=== PATIENT | male | born 1945 | race Caucasian/White ===

== ENCOUNTER 2021-06-16 10:49 | Emergency (ER) | payer OTHER, SELFPAY ==
[2021-06-16] VITALS (18 sets, daily range): BP systolic 75–113; BP diastolic 37–64; PULSE 69–86; RESP 14–18; TEMP 36.7–36.8; O2SAT 96–100; BMI 27.6
--- NOTE | 2021-06-16 11:12 | XR_ITS ---
PROCEDURE INFORMATION: Exam: XR Chest Exam date and time: 06/16/2021 11:12 AM Age: 75 years old Clinical indication: Other: Weakness; Additional info: Gen weakness TECHNIQUE: Imaging protocol: XR of the chest. Views: 1 view. COMPARISON: ABDPELW/O CT ABD PELVIS W/O CONTRAST 06/01/2017 9:41 PM FINDINGS: Lungs: Chronic volume loss in the right lung with areas of scarring in the upper right lung. No definite superimposed focal airspace disease. Pleural spaces: Unremarkable. No pleural effusion. No pneumothorax. Heart/Mediastinum: Unremarkable. No cardiomegaly. Bones/joints: Unremarkable. IMPRESSION: Chronic volume loss and scarring in the right lung without definite evidence of superimposed acute cardiopulmonary abnormality.
[2021-06-16 11:23] LABS: Eosinophils # 0.1 K/mm3 (0.0-0.4); Lymphocytes # 1.5 K/mm3 (0.7-4.5)
[2021-06-16 11:25] LABS: Basophils % 0.7 % (0.1-2.0); Eosinophils % 1.4 % (0.1-12.0); Lymphocytes % 28.4 % (10-50); Mean Corpuscular HGB Conc 30.1 g/dL (31.8-35.4); Mean Corpuscular Hemoglobin 30.9 pg (27.0-31.2); Mean Corpuscular Volume 102.8 fl (80-94); Mean Platelet Volume 9.8 fl (7.4-10.4); Monocytes # 0.5 K/mm3 (0.1-1.0); Monocytes % 8.8 % (1.7-9.3); Neutrophils # 3.2 K/mm3 (1.8-7.8); Neutrophils % 60.6 % (37.0-80.0); Platelet Count 90 K/mm3 (142-424); Red Blood Count 1.98 M/mm3 (4.60-6.20); Red Cell Distribution Width 21.1 % (11.5-17.5); White Blood Count 5.3 K/mm3 (4.8-10.8)
[2021-06-16 11:26] LABS: Hematocrit 20.3 % (42.0-52.0); Hemoglobin 6.1 g/dL (14.1-18.0)
[2021-06-16 11:28] LABS: Chloride 110 mmol/L (98-107); Potassium 4.4 mmoL/L (3.5-5.1); Sodium 140 mmol/L (136-145)
[2021-06-16 11:30] LABS: Alanine Aminotransferase 21 U/L (12-78); Aspartate Amino Transferase 44 U/L (17-59); Blood Urea Nitrogen 24 mg/dl (9-20); Creatinine Clearance Estimated 56 mL/min (50-200); Estimated Glomerular Filt Rate 54 ml/min (>60); GFR (African American) 65 ML/MIN (>60)
--- NOTE | 2021-06-16 11:30 | [facility].EDGENADL ---
ED Disposition Clinical Impression: Upper GI bleed Disposition: Xfer Other Condition on Discharge: Fair Referrals: Provider,Referral, [Primary Care Provider] - - Critical Care Critical Care Time: Yes Attestation: On 06/16/21, the high probability of a clinically significant, sudden or life threatening deterioration of the following system(s) required my full and direct attention, intervention and personal management. The time I documented below is in addition to time spent performing reported procedures but includes the following listed in this critical care notation. Total Critical Care Time: 15 Vital system(s) involved:: Shock (Hemorrhage) My critical care processes included: Assessment & monitoring of V/S, Initial and Re-exams, Data Review/Interpretation, Coordinating Care, Medication Orders and management, Documentation Medical Decision Making - Audi Inquiry Pt receiving controlled substance: No Vital Signs: 06/16/21 10:50 06/16/21 13:12 06/16/21 13:13 Temperature 98.1 F 98.2 F 98.3 F Temperature Source Oral Oral Pulse Rate 81 84 Pulse Rate [Right Radial] 74 Respiratory Rate 18 14 14 TAR Vitals Timing Pre-Blood Vitals Start Vitals Blood Pressure 93/48 L 83/54 L Blood Pressure [Right Arm] 98/48 L Blood Pressure Mean 63 63 Blood Pressure Mean [Right Arm] 64 Blood Pressure Source [Right Arm] Automatic Cuff Blood Pressure Position [Right Arm] Sitting 02 Sat by Pulse Oximetry 98 96 98 Oxygen Delivery Method Room Air 06/16/21 13:18 06/16/21 13:23 06/16/21 13:28 Temperature 98.3 F 98.3 F 98.2 F Temperature Source Oral Oral Pulse Rate 84 85 80 Pulse Rate [Right Radial] Respiratory Rate 14 16 14 TAR Vitals Timing 5 Minute 10 Minute 15 Minute Blood Pressure 83/53 L 92/47 L 82/46 L Blood Pressure [Right Arm] Blood Pressure Mean 63 62 58 Blood Pressure Mean [Right Arm] Blood Pressure Source [Right Arm] Blood Pressure Position [Right Arm] 02 Sat by Pulse Oximetry 99 99 100 Oxygen Delivery Method - Lab Data Lab Results 06/16/21 10:55: WBC 5.3, RBC 1.98 L*, Hgb 6.1 L*, Hct 20.3 L*, MCV 102.8 H, MCH 30.9, MCHC 30.1 L, RDW 21.1 H, Plt Count 90 L, MPV 9.8, Neut % (Auto) 60.6, Lymph % (Auto) 28.4, [place] % (Auto) 8.8, Eos % (Auto) 1.4, Baso % (Auto) 0.7, Neut # (Auto) 3.2, Lymph # (Auto) 1.5, [place] # (Auto) 0.5, Eos # (Auto) 0.1, Baso # (Auto) 0.0 06/16/21 10:55: Sodium 140, Potassium 4.4, Chloride 110 H, Carbon Dioxide 27, Anion Gap 7.4, BUN 24 H, Creatinine 1.30 H, Estimated Creat Clear 56, Estimated GFR 54 L, Est GFR ( Amer) 65, Glucose 111 H, Calcium 7.5 L, Total Bilirubin 1.3, AST 44, ALT 21, Alkaline Phosphatase 135 H, Total Protein 5.3 L, Albumin 2.1 L, Globulin 3.2, Albumin/Globulin Ratio 0.7 L 06/16/21 10:55: Blood Type O Positive, Antibody Screen Negative, Crossmatch (AHG) See Detail 06/16/21 11:50: Lactate 2.2 H 06/16/21 11:50: Blood Type Confirm O Positive Result diagrams: 06/16/21 10:55 06/16/21 10:55 Orders (Tests/Meds): ED MEDICATIONS Generic Name Dose Route Start Last Admin Trade Name Freq PRN Reason Stop Dose Admin Sodium Chloride 250 mls @ 25 mls/hr 06/16/21 11:30 Sod Chlor 0.9% 250ml Bag IV 06/17/21 11:29 .Q10H BERNIE Octreotide Acetate 500 mcg/ 255 mls @ 25.5 mls/hr 06/16/21 11:45 06/16/21 12:49 Sodium Chloride IV 07/16/21 11:44 25.5 mls/hr .Q10H BERNIE Administration 50 MCG/HR Pantoprazole Sodium 80 mg/ 100 mls @ 10 mls/hr 06/16/21 11:45 Sodium Chloride IV 06/19/21 11:44 .Q10H BERNIE Sodium Chloride 10 ml 06/16/21 11:36 Sodium Chloride 0.9% 10ml Vial IV 07/16/21 11:35 NEEDED PRN dilute protonix Discontinued Medications Generic Name Dose Route Start Last Admin Trade Name Freq PRN Reason Stop Dose Admin Sodium Chloride 1,000 mls @ 999 mls/hr 06/16/21 11:15 06/16/21 11:14 Sod Chlor 0.9% 1000ml Bag IV 06/16/21 12:15 999 mls/hr .Q1H1M BERNIE Administration Pantoprazole S
[2021-06-16 11:31] LABS: Albumin Level 2.1 g/dl (3.5-5.0); Albumin/Globulin Ratio 0.7 (1.1-1.8); Alkaline Phosphatase 135 U/L (38-126); Anion Gap 7.4 mEq/L (5-15); Bilirubin,Total 1.3 mg/dl (0.2-1.3); Calcium 7.5 mg/dl (8.4-10.2); Carbon Dioxide 27 mmol/L (22.0-30.0); Globulin 3.2 g/dL (1.3-3.2); Glucose 111 mg/dl (74-100); Total Protein,Serum 5.3 g/dl (6.3-8.2)
[2021-06-16 12:13] LABS: Lactic Acid 2.2 mmol/L (0.7-2.1)
[2021-06-16 12:51] LABS: Coronavirus 19, PCR Not Detected (NotDetected); Influenza A, PCR Not Detected (NotDetected); Influenza B, PCR Not Detected (NotDetected)
[2021-06-16 15:58] LABS: Reflex Lactic No Lactic Reflex
== END 2021-06-16 16:10 | disposition other institution (70) ==
PROVIDERS: Emergency Provider Student in an Organized Health Care Education/Training Program
DX: K92.2 Gastrointestinal hemorrhage, unspecified (principal); B18.2 Chronic viral hepatitis C; Z20.822 Contact with and (suspected) exposure to COVID-19
CPT/HCPCS: 36430; 71045; 80053; 83605; 85025; 86850; 87040; 96365; 99284; C9803; J2354; P9016; U0003; U0005